=== PATIENT | female | born 1965 | race Two or more races ===

== ENCOUNTER 2021-11-28 23:45 | Emergency (ER) | payer OTHER ==
[~2021-11-28] VITALS: Ht 160 cm; Wt 68.0 kg
[~2021-11-28 23:45] MED LIST: ANAPROX275 MG PO; DICY20TA; DIOVAN HCT 80-11 TAB PO; ED-SPAZ0.125 MG; NORFLEX100 MG PO; NORVASC5 MG
[2021-11-28] MEDS ORDERED: SYNTHROID50 MCG (23:53)
[2021-11-28] MEDS ORDERED: METFORMIN HCL500 M3 (23:53)
[2021-11-28] MEDS ORDERED: AFINITOR10 MG (23:54)
[2021-11-28] MEDS ORDERED: NEURONTIN300 MG (23:54)
[2021-11-28] MEDS ORDERED: VAZALORE81 MG (23:54)
[2021-11-28] MEDS ORDERED: FUSION PLUS CA1 EACH (23:54)
[2021-11-28] MEDS ORDERED: CRESTOR10 MG (23:54)
== END 2021-11-29 | disposition left against medical advice (07) ==
LOC: ER 23:45
DX: Z53.21 Procedure and treatment not carried out due to patient leaving prior to being seen by health care provider (principal)